=== PATIENT | female | born 1995 | race Caucasian/White ===

== ENCOUNTER → 2016-09-02 | Outpatient (CLI) | payer BC, OTHER ==
[~2016-09-02] MED LIST: ADAPALENE 0.1% TP; ALDACTONE50 MG; CLARITIN 1010 MG/TAB PO; DYNACIN50 M1; PROZAC 20MG20 MG PO; SINGULAIR 110 MG/TAB PO; SPRINTEC 35 MCG1 TAB PO; VENTOLIN0.09 MG IH
== END ==
LOC: COL.RAD 09:58
DX: M25.531 Pain in right wrist (principal)
CPT/HCPCS: A9585; Q9967

== ENCOUNTER → 2018-07-15 | Outpatient (CLI) | payer BC, OTHER | LOC: COL.RAD 12:58 | DX: D72.829 Elevated white blood cell count, unspecified (principal); R10.31 Right lower quadrant pain; R11.10 Vomiting, unspecified | CPT/HCPCS: Q9967 ==